=== PATIENT | male | born 1980 | race African-American/Black ===

== ENCOUNTER 2017-09-17 19:56 | Emergency (ER) | payer SELFPAY ==
[~2017-09-17] VITALS: Ht 172.7 cm; Wt 86.0 kg
[~2017-09-17 19:56] MED LIST: Z.0.NO CURRENT MEDS
[2017-09-17 19:57] VITALS: BP 135/88; PULSE 72; RESP 16; TEMP 98.3; O2SAT 99
[2017-09-17 21:02] LABS: BILIRUBIN, URINE NEG (NEG); BLOOD, URINE NEG (NEG); GLUCOSE,URINE NEG (NEG); KETONE, URINE NEG (NEG); MUCUS URINE FEW /lpf (OCC); NITRITE,URINE NEG (NEG); URINE COLOR YELLOW (YELLW/STRAW); URINE LEUKOCYTE ESTERASE NEG (NEG)
--- NOTE | 2017-09-17 21:04 | PD ---
HPI Chief Complaint: Complaint Time Seen by Provider: 20:06 Travel History International Travel<30 days: No Contact w/Intl Traveler<30days: No Traveled to known affect area: No History of Present Illness HPI 37-year-old male that presents to the ED for evaluation of dysuria, polyuria and hematuria. has had this for about 3 days. Blood in urine for two days on some occasions. Per patient had an ejaculation with blood. Feels urgency. No flank pain. pain in abdomen. History of STD in the past but denies any currently. Patient is a possibility. He denies any history of kidney stones on himself. He has a history of diabetes per patient. He denies any bowel movement issues. No nausea or vomiting. Hasn't taken anything for this. Hasn' t seen anybody for this. He was more concerned about the blood in the urine. Per patient the pain is 4 out of 10 and is burning. Denies any scrotal pain or swelling. PFSH Past Medical History Musculoskeletal: Yes (LEFT KNEE RECONSTRUCTION 2002) Tetanus Vaccination: < 5 Years Past Surgical History Appendectomy: Yes (1994) Social History Alcohol Use: No Tobacco Use: Yes (BLACK AND MILD CIGARS 1-2 EVERY OTHER DAY.) Substance Use: No Allergies-Medications (Allergen,Severity, Reaction): Coded Allergies: No Known Allergies (Verified Allergy, Unknown, 09/17/17) Reported Meds & Prescriptions Reported Meds & Active Scripts Active Cipro (Ciprofloxacin HCl) 500 Mg Tab 500 Mg PO BID 7 Days Review of Systems Except as stated in HPI: all other systems reviewed are Neg Physical Exam Narrative GENERAL: SKIN: Warm and dry. HEAD: Atraumatic. Normocephalic. EYES: Pupils equal and round. No scleral icterus. No injection or drainage. ENT: No nasal bleeding or discharge. Mucous membranes pink and moist. NECK: Trachea midline. No JVD. CARDIOVASCULAR: Regular rate and rhythm. RESPIRATORY: No accessory muscle use. Clear to auscultation. Breath sounds equal bilaterally. GASTROINTESTINAL: Abdomen soft, non-tender, nondistended. Hepatic and splenic margins not palpable. MUSCULOSKELETAL: Extremities without clubbing, cyanosis, or edema. No obvious deformities. Full range of motion of the upper and lower extremities bilaterally. 2+ pulses bilaterally. NEUROLOGICAL: Awake and alert. No obvious cranial nerve deficits. Motor grossly within normal limits. Five out of 5 muscle strength in the arms and legs. Normal speech. PSYCHIATRIC: Appropriate mood and affect; insight and judgment normal. Data Data Last Documented VS Vital Signs Date Time Temp Pulse Resp B/P (MAP) Pulse Ox O2 Delivery O2 Flow Rate FiO2 09/17/17 22:33 98.1 78 18 130/80 (97) 100 Orders Orders Urinalysis - C+S If Indicated (09/17/17 20:17) Gc And Chlamydia Pcr (09/17/17 20:17) Ct Abd/Pel W/O Iv Contrast (09/17/17 20:17) Azithromycin Powd Pack (Zithromax Powd P (09/17/17 21:30) Ceftriaxone Inj (Rocephin Inj) (09/17/17 21:30) Lidocaine Pf 1% Inj (Xylocaine-Mpf 1% In (09/17/17 22:00) Ed Discharge Order (09/17/17 22:05) Labs Laboratory Tests Test 09/17/17 20:36 Urine Color YELLOW Urine Turbidity CLEAR Urine pH 6.0 Urine Specific [place] 1.024 Urine Protein NEG mg/dL Urine Glucose (UA) NEG mg/dL Urine Ketones NEG mg/dL Urine Occult Blood NEG Urine Nitrite NEG Urine Bilirubin NEG Urine Urobilinogen LESS THAN 2.0 MG/DL Urine Leukocyte Esterase NEG Urine RBC 1 /hpf Urine WBC 1 /hpf Urine Mucus FEW /lpf Microscopic Urinalysis Comment CULT NOT INDICATED MDM Medical Decision Making Medical Screen Exam Complete: Yes Emergency Medical Condition: Yes Medical Record Reviewed: Yes Interpretation(s) Last Impressions Abdomen/Pelvis CT 09/17/172016 Signed Impressions: Service Date/Time: Sunday, September 17, 2017 20:32 - CONCLUSION: Negative noncontrast CT abdomen/pelvis. No calcified renal stones. Chris Sams MD UA shows mucus Differential Diagnosis UTI versus pyelonephritis versus cystitis versus STD versus kidney stone Narrative Course 37-year-old male that presents to the ED for evaluation of hematuria and polyuria. Patient was properly examined and was found to have signs and symptoms concerning for likely infection. UA and CT were ordered and recommended and patient agrees to proceed. Urine and CT showed no sign of acute disease. Patient was reassured. There is some concern for infection as patient does have dysuria and polyuria. Patient will be treated prophilactically for STD with ceftriaxone and azithromycin. I will treat with Cipro to cover for prostatitis although does not appear to be so. Follow up with PCP. See ED if worsening symptoms. Diagnosis Primary Impression: Dysuria Patient Instructions: General Instructions Additional Instructions: Drink plenty of fluids. Take medications as prescribed. Follow with PCP. See ED worsening symptoms. Med/Other Pt SpecificInfo: Prescription(s) given Scripts Ciprofloxacin (Cipro) 500 Mg Tab 500 MG PO BID for Infection for 7 Days, #14 TAB 0 Refills Prov: Natividad Hess MD 09/17/17 Disposition: 01 DISCHARGE HOME Condition: Stable Duke Abbott Sep 17, 2017 21:04
[2017-09-17] MEDS ORDERED: LIDOCAINE HCL 1% 50 ML VIAL IM ONE (21:30)
[2017-09-17] MEDS ORDERED: AZITHROMYCIN PWD FOR SUSP 1 GM PACKET PO ONE (21:30)
[2017-09-17] MEDS ORDERED: cefTRIAXone 250 MG VIAL IM ONE (21:30)
[2017-09-17] MEDS ORDERED: LIDOCAINE HCL 1% PF 10 ML VIAL OTHER ONE (21:45)
--- NOTE | 2017-09-17 21:48 | RADRPT ---
EXAM DATE/TIME: 09/17/2017 20:32 [facility] COMPARISON: No previous studies available for comparison. INDICATIONS : Abdominal pain and hematuria. ORAL CONTRAST: No oral contrast ingested. RADIATION DOSE: 7.53 CTDIvol (mGy) MEDICAL HISTORY : Non-responsive. SURGICAL HISTORY : Appendectomy. ENCOUNTER: Initial ACUITY: 1 day PAIN SCALE: 5/10 LOCATION: Bilateral abdomen TECHNIQUE: Volumetric scanning of the abdomen and pelvis was performed. Using automated exposure control and ad justment of the mA and/or kV according to patient size, radiation dose was kept as low as reasonably achievable to obtain optimal diagnostic quality images. DICOM format image data is available electro nically for review and comparison. FINDINGS: LOWER LUNGS: The visualized lower lungs are clear. LIVER: Homogeneous density without lesion. There is no dilation of the biliary tree. No calcified gallston es. Contracted gallbladder. SPLEEN: Normal size without lesion. PANCREAS: Within normal limits. KIDNEYS: Normal in size and shape. There is no mass, calcified stone, or hydronephrosis. Both proximal urete rs are normal in dimension. ADRENAL GLANDS: Within normal limits. VASCULAR: There is no aortic aneurysm. BOWEL/MESENTERY: No dilated loops of small or large bowel. ABDOMINAL WALL: Within normal limits. RETROPERITONEUM: There is no lymphadenopathy. BLADDER: No wall thickening or mass. No calcifications within the lumen. REPRODUCTIVE: Within normal limits. INGUINAL: There is no lymphadenopathy or hernia. MUSCULOSKELETAL: Partial sacralization of L5 on the left. CONCLUSION: Negative noncontrast CT abdomen/pelvis. No calcified renal stones. Chris Sams MD on September 17, 2017 at 21:43 Board Certified Radiologist. This report was verified electronically.
[2017-09-17] MEDS ORDERED: LIDOCAINE HCL 1% PF 5 ML AMPULE OTHER ONE (22:00)
[2017-09-17] MEDS ORDERED: CIPR-9 PO (22:01)
[2017-09-17 22:33] VITALS: BP 130/80; TEMP 98.1
== END 2017-09-17 22:35 | disposition home or self-care (01) ==
LOC: NEPC 19:56
DX: R30.0 Dysuria (principal); R35.8 Other polyuria; R31.9 Hematuria, unspecified; R36.1 Hematospermia; R39.15 Urgency of urination; Z72.0 Tobacco use
CPT/HCPCS: 74176; 81001; 87491; 87591; 96372; 99284; J0696